=== PATIENT | female | born 1955 | race Caucasian/White ===

== ENCOUNTER 2018-07-22 16:43 | Emergency (ER) | payer MEDICARE ==
[~2018-07-22] VITALS: Ht 160 cm; Wt 81.7 kg
[~2018-07-22 16:43] MED LIST: ATENOLOL-CHLOR1 EACH PO; B12INJ PO; CENTRUM SILVER1 EAC4 PO; CURCUMIN1 GM PO; DEXAMETHASONE 44 M1 PO; DILTIAZEM 24HR300 M2 PO; ELIQUIS2.5 MG PO; GLUCOTROL5 MG PO; HOME MEDICATION PO; IRON325 PO; K-DUR10 MEQ PO; LEVAQUIN 500 M500 M2 PO; LIPITOR 20 MG T20 M1 PO; LOSARTAN POTASS50 MG PO; ONDANSETRON HCL4 M2 PO; PURE TAURINE500 MG PO; TYLENOL325 MG PO; VITAMIN D 5050000 I1 PO; VITAMIN E400 UNIT PO; [UNRECOGNIZED DRUG - OTHER]
[2018-07-22 17:09] LABS: HEMATOCRIT 32.4 % (37.0-47.0); HEMOGLOBIN 10.3 gm/dL (12.0-15.0); MCH 26.3 pg (26.0-34.0); MCHC 31.8 g/dL (28.0-37.0); MCV 82.5 fL (80.0-100.0); MPV 6.4 fl. (7.2-11.1); NUCLEATED RBCS 0 /100WBC; PLATELET COUNT* 297 thou/uL (150-400); RBC 3.93 mil/uL (4.20-5.00); RDW-CV 19.4 % (10.5-14.5); WBC 13.7 thou/uL (4.0-11.0)
[2018-07-22 17:17] LABS: CALCIUM 9.3 mg/dL (8.5-10.1); CREATININE 1.7 mg/dL (0.6-1.3); POTASSIUM 4.3 mmol/L (3.5-5.1)
[2018-07-22 17:27] LABS: ALBUMIN 2.6 g/dL (3.4-5.0); TOTAL BILIRUBIN 0.4 mg/dL (<0.1-1.0); TOTAL PROTEIN 7.4 g/dL (6.4-8.2)
[2018-07-22 17:33] LABS: ABSOLUTE LYMPHOCYTES 0.8 thou/uL (0.8-5.3); ABSOLUTE MONOCYTES 0.7 thou/uL (0.0-1.2); ABSOLUTE NEUTROPHILS 12.2 thou/uL (1.6-8.1); PLATELET ESTIMATE ADEQUATE
[2018-07-22 17:34] LABS: ANISOCYTOSIS 1+; MICROCYTES 1+
[2018-07-22] MEDS ORDERED: FUROSEMIDE 20 M20 MG PO (17:34)
[2018-07-22] MEDS ORDERED: NEURONTIN600 MG PO (17:35)
[2018-07-22] MEDS ORDERED: METFORMIN HCL500 MG PO (17:36)
[2018-07-22] MEDS ORDERED: MAGOX 400400 MG PO (17:36)
[2018-07-22] MEDS ORDERED: NIACIN 100MG T100 M1 PO (17:37)
[2018-07-22] MEDS ORDERED: AMINO ACID1 EACH PO (17:39)
[2018-07-22 20:50] VITALS: BP 136/71
[2018-07-23 09:04] LABS: POC CA IONIZED 4.7 mg/dL (4.5-5.3); POC CREATININE 1.7 mg/dL (0.6-1.3); POC HEMOGLOBIN 11.2 g/dL (12.0-17.0); POC POTASSIUM 4.5 mmol/L (3.5-4.9)
--- NOTE | 2018-07-23 14:59 | EKG ---
[place] [address] ELECTROCARDIOGRAM REPORT Name: JOHN PANCHAL Room: [facility]#: [id number] Admission: 07/22/18 Attend Phys: Discharge: 07/22/18 Date of : 59 Report #: [id number] THIS REPORT FOR: //name// [facility] ED Test Date: 2018-07-22 Test Time: 17:15:00 Pat Name: JOHN PANCHAL Department: Room: Gender: F [employer] Work[employer]: : 1955 Requested By: Jelly Boyer Order Number: [id number] Main MD: Jani Anne Measurements Intervals Pegram Rate: 88 P: 0 WI: 60 QRS: 23 QRSD: 91 T: 83 QT: 341 QTc: 413 Interpretive Statements Sinus rhythm Short WI interval LVH with secondary repolarization abnormality Baseline wander in lead(s) I,aVR Compared to ECG 11/06/2016 07:28:20 Short WI interval now present Left ventricular hypertrophy now present Early repolarization now present Atrial flutter no longer present AV block, advanced (high-grade) no longer present Electronically Signed On 07-23-2018 14:59:39 CDT by Jani Anne [email or web address] <ELECTRONICALLY SIGNED> By: Jani Anne MD, FACC 07/23/18 1459 1715 1715 Jani Anne MD, FACC /EPI
== END 2018-07-22 20:52 | disposition short-term general hospital (02) ==
LOC: M.ERS 16:43
PROVIDERS: Personal Emergency Response Attendant
DX: I63.9 Cerebral infarction, unspecified (principal); C79.31 Secondary malignant neoplasm of brain; R47.01 Aphasia; I10 Essential (primary) hypertension; Z85.3 Personal history of malignant neoplasm of breast; Z85.118 Personal history of other malignant neoplasm of bronchus and lung